=== PATIENT | male | born 1960 | race Caucasian/White ===

== ENCOUNTER 2024-07-17 14:29 | Outpatient (REF) | payer MEDICARE, SELFPAY ==
[2024-07-17 16:17] LABS: Anion Gap 13 (12-20); Blood Urea Nitrogen 23 mg/dL (9-16); Calcium 9.2 mg/dL (8.4-10.2); Carbon Dioxide 26 mmol/L (22-29); Chloride 105 mmol/L (96-108); Estimated Glomerular Filt Rate > 60; Glucose Random 82 mg/dL (60-115); Potassium 4.3 mmol/L (3.3-5.1); Sodium 140 mmol/L (135-145)
[2024-07-17 16:36] LABS: Erythrocyte Sedimentation Rate 2 MM/HR (0-15)
[2024-07-18 12:44] LABS: Lyme Abs Screen <0.90 index
== END 2024-07-17 14:30 | disposition home or self-care (01) ==
LOC: HO.LAB 14:29
PROVIDERS: PCP Internal Medicine; Visit Provider Psychiatry & Neurology Neurology
DX: M79.7 Fibromyalgia (principal)
CPT/HCPCS: 36415; 80048; 85652; 86617; 86618